=== PATIENT | female | born 1945 | race Caucasian/White ===

== ENCOUNTER 2018-09-17 09:32 | Inpatient (IN) | payer OTHER ==
[~2018-09-17] VITALS: Ht 149.9 cm; Wt 54.4 kg
[~2018-09-17 09:32] MED LIST: CATAFLAM50 MG PO; CIPRO750 MG PO; CLONAZEPAM1 MG PO; DOCUSATE SODIU100 MG PO; METHYLPRED4 MG/DOSE- PO; NEURONTIN PO; PERCOCET 5/3251 TAB PO
[2018-09-17] MEDS ORDERED: AZILECT1 MG (09:57)
[2018-09-17] MEDS ORDERED: EVISTA60 MG (09:57)
[2018-09-17] MEDS ORDERED: GLUCOSAMINE HC500 MG (09:58)
[2018-09-22] MEDS ORDERED: XARELTO10 MG PO (11:06)
[2018-09-22] MEDS ORDERED: TRAM1TAB98 PO (11:06)
== END 2018-09-22 13:30 | disposition home health service (06) | DRG 482 ==
LOC: ER 09:32 → SEC-K 21:33 → SURG 21:33
PROVIDERS: Orthopaedic Surgery
PROC: BQ21ZZZ Computerized Tomography (CT Scan) of Left Hip (ICD-10-PCS; 2018-09-17)
PROC: 0QS704Z Reposition Left Upper Femur with Internal Fixation Device, Open Approach (ICD-10-PCS; principal; 2018-09-19 09:45)
DX: S72.092A Other fracture of head and neck of left femur, initial encounter for closed fracture (principal); W01.0XXA Fall on same level from slipping, tripping and stumbling without subsequent striking against object, initial encounter; Y93.89 Activity, other specified; Y92.89 Other specified places as the place of occurrence of the external cause; Y99.8 Other external cause status; G20 Parkinson's disease; M17.12 Unilateral primary osteoarthritis, left knee; S80.02XA Contusion of left knee, initial encounter; Z98.1 Arthrodesis status

== ENCOUNTER 2018-10-02 11:46 | Outpatient (CLI) | payer OTHER ==
[~2018-10-02 11:46] MED LIST changes: +AZILECT1 MG; +EVISTA60 MG; +GLUCOSAMINE HC500 MG; +TRAM1TAB98 PO; +XARELTO10 MG PO
== END 2018-10-02 11:56 | disposition home or self-care (01) ==
LOC: RAD 501 11:46
DX: S72.035D Nondisplaced midcervical fracture of left femur, subsequent encounter for closed fracture with routine healing (principal)

== ENCOUNTER → 2018-10-09 09:52 | Outpatient (CLI) | payer OTHER | END | disposition home or self-care (01) | LOC: LAB 09:52 | DX: M85.89 Other specified disorders of bone density and structure, multiple sites (principal); E55.9 Vitamin D deficiency, unspecified; E21.2 Other hyperparathyroidism; M81.8 Other osteoporosis without current pathological fracture; E56.1 Deficiency of vitamin K; E88.89 Other specified metabolic disorders; E83.42 Hypomagnesemia ==

== ENCOUNTER → 2018-10-09 | Outpatient (CLI) | payer OTHER | END | disposition home or self-care (01) | LOC: NUCLEAR 12:19 | DX: M81.0 Age-related osteoporosis without current pathological fracture (principal) ==

== ENCOUNTER 2018-10-23 13:37 | Outpatient (CLI) | payer OTHER | END 2018-10-23 18:11 | disposition home or self-care (01) | LOC: RAD 501 13:37 | DX: S72.035D Nondisplaced midcervical fracture of left femur, subsequent encounter for closed fracture with routine healing (principal) ==

== ENCOUNTER 2019-03-05 13:15 | Outpatient (CLI) | payer OTHER | END 2019-03-05 13:27 | disposition home or self-care (01) | LOC: RAD 501 13:15 | DX: M25.552 Pain in left hip (principal); S72.035D Nondisplaced midcervical fracture of left femur, subsequent encounter for closed fracture with routine healing ==